=== PATIENT | female | born 1990 | race Caucasian/White ===

== ENCOUNTER 2016-09-19 01:12 | Emergency (ER) | payer OTHER ==
[2016-09-19] MEDS ORDERED: PHENAZOPYRIDINE 100 MG TABLETS (Prepack) PO STA (02:09)
[2016-09-19] MEDS ORDERED: SULFAM/TRIM 800/160 Prepack 2 PO ONE ×2 (02:10→02:14)
[2016-09-19] MEDS ORDERED: PHENAZOPYRIDINE 100 MG TABLETS (Prepack) PO ONE (02:14)
== END 2016-09-19 02:22 | disposition home or self-care (01) ==
DX: N30.01 Acute cystitis with hematuria (principal)